=== PATIENT | female | born 1945 | race Caucasian/White ===

== ENCOUNTER 2025-03-02 11:00 | Inpatient (IN) | payer MEDICARE ==
[2025-03-02 11:22] VITALS: BMI 20.5
[2025-03-03] MEDS ORDERED: PROPOFOL 20 ML ONE (09:25)
[2025-03-03] MEDS ORDERED: Glycopyrrolate 0.2 MG/ML 5 ML SYRINGE ONE (09:26)
[2025-03-03] MEDS ORDERED: Ondansetron PF 4 MG/2 ML Vial ONE (09:26)
[2025-03-03] MEDS ORDERED: Lidocaine 1% PF 5 ML VIAL ONE (09:26)
[2025-03-03] MEDS ORDERED: Rocuronium Bromide 10 MG/ML (10ML VIAL) ONE (09:26)
[2025-03-03] MEDS ORDERED: Heparin 5,000 UNITS/ML VIAL ONE (09:33)
[2025-03-03] MEDS ORDERED: EPINEPHrine 1 MG/ML VIAL ONE (09:33)
[2025-03-03] MEDS ORDERED: Bupivacaine PF 0.5% 30 ML VIAL ONE (09:34)
[2025-03-03] MEDS ORDERED: CEFAZOLIN 2 GM VIAL ONE (09:48)
[2025-03-03] MEDS ORDERED: Heparin 10,000 UNITS/ 10 ML VIAL ONE (10:29)
[2025-03-03] MEDS ORDERED: Protamine Sulfate 50 MG/5 ML VIAL ONE (10:56)
[2025-03-03] MEDS ORDERED: SUGAMMADEX SODIUM 200 MG/2 ML VIAL ONE (11:00)
[2025-03-03] MEDS ORDERED: PHENYLEPHRINE-NS 100 MCG/ML 10 ML SYRINGE ONE (11:22)
[2025-03-03] MEDS ORDERED: Phenylephrine 40 MG/NS 250 ML 250 ML IVPB PRN (11:25)
[2025-03-03] MEDS ORDERED: hydrALAZINE 20 MG/ML VIAL SLOW IVP PRN (11:25)
[2025-03-03] MEDS ORDERED: Ipratropium/Albuterol 3 ML NEB NEB PRN (11:25)
[2025-03-03] MEDS ORDERED: Nitroglycerin 50 MG/250 ML BOT 250 ML IVPB PRN (11:25)
[2025-03-03] MEDS ORDERED: fentaNYL 50 mcg/mL 1 mL Vial SLOW IVP PRN (11:25)
[2025-03-03] MEDS ORDERED: Ondansetron PF 4 MG/2 ML Vial IVP PRN (11:25)
[2025-03-03] MEDS ORDERED: Phenylephrine 40 MG/NS 250 ML 250 ML ONE (11:26)
[2025-03-03] MEDS ORDERED: Artificial Tear Ophth Sol 15 ML BOT EA EYE PRN (11:39)
[2025-03-03] MEDS ORDERED: fentaNYL 50 mcg/mL 1 mL Vial ONE (11:47)
[2025-03-03] MEDS: D5 1/2 NS w/20 mEq KCL 1,000 ML IV SCH (12:22)
[2025-03-03] MEDS: traMADol HCl 50 MG TAB PO PRN (12:29)
[2025-03-03] MEDS: CEFAZOLIN 2 GM in Sodium Chloride 0.9% 100 ML IVPB SCH (17:16)
[2025-03-04 06:06] VITALS: TEMP 97.6
[2025-03-04] MEDS: Levothyroxine Sodium 100 MCG TAB PO SCH (06:15)
[2025-03-04] MEDS: Acetaminophen 325 MG TAB PO PRN (07:16)
[2025-03-04] MEDS: Atorvastatin Calcium 40 MG TAB PO SCH (08:57)
[2025-03-04] MEDS ORDERED: CO Q-10 CAPSULE 50 MG PO SCH (09:00)
[2025-03-04] MEDS: Amlodipine 5 MG TAB PO SCH (09:29)
[2025-03-04] MEDS: Losartan 25 MG TAB PO SCH (09:30)
[2025-03-04] MEDS: Metoprolol Succinate XL 50 MG ER.TAB PO SCH (09:30)
[2025-03-04] MEDS: Hydrochlorothiazide 25 MG TAB PO SCH (09:30)
[2025-03-04 10:01] VITALS: BP 91/45
== END 2025-03-04 10:30 | disposition home or self-care (01) | DRG 36 ==
LOC: SURG A 03-03 07:53 → CCU 03-03 12:05
PROVIDERS: ADMIT Thoracic Surgery (Cardiothoracic Vascular Surgery); ATTEND Thoracic Surgery (Cardiothoracic Vascular Surgery)
PROC: 037K3DZ Dilation of Right Internal Carotid Artery with Intraluminal Device, Percutaneous Approach (ICD-10-PCS; principal; 2025-03-03)
DX: I65.21 Occlusion and stenosis of right carotid artery (principal); M19.90 Unspecified osteoarthritis, unspecified site; I10 Essential (primary) hypertension; Z98.890 Other specified postprocedural states; Z85.850 Personal history of malignant neoplasm of thyroid; Z79.899 Other long term (current) drug therapy; Z82.49 Family history of ischemic heart disease and other diseases of the circulatory system; Z87.891 Personal history of nicotine dependence; Z88.1 Allergy status to other antibiotic agents; Z88.2 Allergy status to sulfonamides
CPT/HCPCS: C1725; C1769; C1876; C1884; J0171; J0665; J1644; J2405; J2704; J2720; J3010; J3480